=== PATIENT | female | born 1955 | race Caucasian/White ===

== ENCOUNTER 2024-04-19 19:33 | Outpatient (OUT) | payer MEDICARE, SELFPAY | END 2024-04-19 19:34 | disposition home or self-care (01) | LOC: SLEEP 19:33 | PROVIDERS: PCP Internal Medicine; Visit Provider Internal Medicine | DX: G47.33 Obstructive sleep apnea (adult) (pediatric) (principal) | CPT/HCPCS: 95810 ==

== ENCOUNTER 2024-06-01 20:40 | Outpatient (OUT) | payer MEDICARE, SELFPAY | END 2024-06-01 20:41 | disposition home or self-care (01) | LOC: SLEEP 20:40 | PROVIDERS: PCP Internal Medicine; Visit Provider Internal Medicine | DX: G47.33 Obstructive sleep apnea (adult) (pediatric) (principal) | CPT/HCPCS: 95811 ==